=== PATIENT | female | born 2000 | race Caucasian/White ===

== ENCOUNTER 2023-05-24 15:57 | Emergency (ER) | payer OTHER, SELFPAY ==
[2023-05-24 16:06] VITALS: BP 113/71; PULSE 71; RESP 16; TEMP 37.1; O2SAT 98; BMI 32.1
[2023-05-24 16:34] LABS: Internal Control Within Normal Limits; Strep A Antigen Screen Negative
--- NOTE | 2023-05-24 16:41 | ED.GENADUL1 ---
HPI - General Adult General Chief complaint: Ear Stated complaint: EAR Time Seen by Provider: 05/24/23 16:07 Source: patient Mode of arrival: walk-in History of Present Illness HPI narrative: Pain along left left jaw/upper neck and the left ear that began about a week ago. She has not had any testing or treatment for this. She came in today because the left ear pain worsened. She also has a mild cough and sore throat - also on the left. No vomiting or diarrhea. Related Data Previous Rx's Medication Instructions Recorded [id number]-chqketcresndeom-NI 5 ml PO Q6H PRN cold symptoms #118 05/24/23 2 mg-30 mg-10 mg/5 mL oral syrup mL (Bromfed DM) Allergies Allergy/AdvReac Type Severity Reaction Status Date / Time No Known Drug Allergies Allergy Verified 05/24/23 16:09 Exam Narrative Exam Narrative: Nurses notes and vital signs reviewed and patient is not hypoxic. afebrile General: Well-appearing and in no apparent distress. Skin: Warm, dry, no pallor noted. Head: Normocephalic, atraumatic. Neck: Supple, non-tender. No cervical lymphadenopathy Eye: Pupils are equal, round and EOMI. No scleral icterus. Ears, Nose, Mouth, and Throat: TM are clear, minimal nasal mucosal hypertrophy. Oral mucosa is moist, mild posterior oropharynx erythema without exudate or swelling, uvula is mid-line Cardiovascular: Regular Rate and Rhythm without murmur, gallop or rub. Respiratory: No accessory muscle use or respiratory distress. Lungs are clear to auscultation, no wheezing, rales or rhonchi GI: Abdomen is soft, non-distended. Normal bowel sounds. No tenderness to palpation. No rebound, guarding, or rigidity noted. Neurological: A&O x4. No cranial nerve dysfunction observed. No truncal ataxia. Moves all extremities. Sensation intact. Psychiatric: Cooperative and interactive. Normal mood and affect. Constitutional Vital Signs, click to edit/add: Last Vital Signs Temp 98.8 F 05/24/23 16:06 Pulse 71 05/24/23 16:06 Resp 16 05/24/23 16:06 BP 113/71 05/24/23 16:06 Pulse Ox 98 05/24/23 16:06 O2 Del Method Room Air 05/24/23 16:06 Course Vital Signs Vital signs: Vital Signs Temperature 98.8 F 05/24/23 16:06 Pulse Rate 71 05/24/23 16:06 Respiratory Rate 16 05/24/23 16:06 Blood Pressure 113/71 05/24/23 16:06 Pulse Oximetry 98 05/24/23 16:06 Oxygen Delivery Method Room Air 05/24/23 16:06 Temperature 98.8 F 05/24/23 16:06 Pulse Rate 71 05/24/23 16:06 Respiratory Rate 16 05/24/23 16:06 Blood Pressure 113/71 05/24/23 16:06 Pulse Oximetry 98 05/24/23 16:06 Oxygen Delivery Method Room Air 05/24/23 16:06 Medical Decision Making MDM Narrative Medical decision making narrative: strep screen negative. Patient's exam suggests mild URI - likely near the end of her course. Could not determine the etiology of her distribution of pain but she has no swelling, facial cellulitis, or other worrisome findings on exam. Patient tested negative for strep. She was discharged home with prescription for bromfed dm cough syrup. PCP follow up advised. Lab Data Lab results reviewed: Yes I reviewed the patient's lab results Labs: Lab Results 05/24/23 Range/Units 16:10 Streptococcus Screen Negative Discharge Plan Discharge Chief Complaint: Ear Clinical Impression: Upper respiratory infection, Pharyngitis Patient Disposition: Home, Self-Care Time of Disposition Decision: 16:45 Prescriptions / Home Meds: New yvppnkcvnlpvmwm-eemqdjjoh-LE [Bromfed DM] 2-30-10 mg/5 mL syrup 5 ml PO Q6H PRN (Reason: cold symptoms) Qty: 118 0RF Instructions: Pharyngitis (ED), Upper Respiratory Infection (ED) Stand Alone Forms: Portal Instructions Referrals: Bennett Bloom DO [Primary Care Provider] - 1 week
== END 2023-05-24 16:57 | disposition home or self-care (01) ==
PROVIDERS: Emergency Provider Emergency Medicine; PCP Family Medicine
DX: J06.9 Acute upper respiratory infection, unspecified (principal); J02.9 Acute pharyngitis, unspecified
CPT/HCPCS: 87070; 87880; 99283